=== PATIENT | female | born 1975 | race Caucasian/White ===

== ENCOUNTER 2016-08-18 20:10 | Emergency (ER) | payer OTHER | END 2016-08-18 20:46 | disposition home or self-care (01) | LOC: ER 20:10 | DX: L03.115 Cellulitis of right lower limb (principal); L03.313 Cellulitis of chest wall; L73.9 Follicular disorder, unspecified; S20.369A Insect bite (nonvenomous) of unspecified front wall of thorax, initial encounter; S70.361A Insect bite (nonvenomous), right thigh, initial encounter; W57.XXXA Bitten or stung by nonvenomous insect and other nonvenomous arthropods, initial encounter; F17.210 Nicotine dependence, cigarettes, uncomplicated; Z88.0 Allergy status to penicillin; Z79.899 Other long term (current) drug therapy | CPT/HCPCS: 99282 ==

== ENCOUNTER 2016-09-08 18:23 | Emergency (ER) | payer OTHER | END 2016-09-08 19:32 | disposition home or self-care (01) | LOC: ER 18:23 | DX: L03.115 Cellulitis of right lower limb (principal); L02.415 Cutaneous abscess of right lower limb; F17.210 Nicotine dependence, cigarettes, uncomplicated; Z79.891 Long term (current) use of opiate analgesic; Z79.84 Long term (current) use of oral hypoglycemic drugs; Z79.899 Other long term (current) drug therapy | CPT/HCPCS: 87070; 87186; 99070; 99282 ==

== ENCOUNTER 2016-11-18 15:00 | Emergency (ER) | payer OTHER ==
[2016-11-21 11:25] LABS: HBS AG SCREEN Non Reactive (NR); HCV Non Reactive (NR)
== END 2016-11-18 16:06 | disposition home or self-care (01) ==
LOC: ER 15:00
PROVIDERS: Emergency Medicine
DX: Z20.5 Contact with and (suspected) exposure to viral hepatitis (principal); Z11.59 Encounter for screening for other viral diseases; G35 Multiple sclerosis; Z85.41 Personal history of malignant neoplasm of cervix uteri; I67.1 Cerebral aneurysm, nonruptured; J45.909 Unspecified asthma, uncomplicated; Z88.0 Allergy status to penicillin
CPT/HCPCS: 36415; 80074; 99282